=== PATIENT | female | born 1990 ===

== ENCOUNTER 2023-08-28 12:47 | Emergency (ER) | payer OTHER, SELFPAY ==
[2023-08-28] VITALS (12 sets, daily range): BP systolic 121–150; BP diastolic 82–102; PULSE 74–90; RESP 16–24; TEMP 36.6; O2SAT 95–100
--- NOTE | ~2023-08-28 | CT_ITS ---
EXAMINATION: CT cervical spine wo con DATE: 08/28/2023 16:01 INDICATION: Neck pain TECHNIQUE: Computed tomography (CT) of the cervical spine was performed without intravenous contrast. The dose-length product was 549 mGy-cm. Automated exposure control and iterative reconstruction tech [employer] were employed. COMPARISON: None FINDINGS: There is anatomic alignment of the cervical spine. Vertebral body heights are maintained. N o acute fracture or traumatic malalignment. Craniovertebral junction is normal. There is a 4 mm left upper lobe nodule. Craniovertebral junction is normal. No spinal stenosis. No significant paraspinal soft tissue abnormality. IMPRESSION: 1. No acute abnormality of the cervical spine. Reviewed, dictated and finalized at location B. YING AND CALKING SUPERVISOR
--- NOTE | ~2023-08-28 | CT_ITS ---
EXAMINATION: CTA brain carotid DATE: 08/28/2023 16:04 INDICATION: Syncope. TECHNIQUE: Computed tomographic angiography (CTA) of the head was performed without and with 100 mL O mnipaque-350 intravenous contrast. CTA of the neck was performed with intravenous contrast. Automated exposure control and iterative reconstruction technique were employed. The dose-length product was 1 687.73 mGy-cm. Maximum intensity projection and volume rendered 3D-reconstructions were created by kyrie mtz technologist on a separate workstation. COMPARISON: None. FINDINGS: HEAD CTA: There is no intracranial hemorrhage, acute infarction, or abnormal intracranial mass lesion . The ventricles are normal in size. There is mild mucosal thickening in the paranasal sinuses. The o rbits are normal. The mastoid air cells are normal. Right vertebral artery is dominant. There is no s ignificant stenosis of basilar artery or the posterior cerebral arteries. There is no significant laly nosis of the intracranial internal carotid arteries or anterior or middle cerebral arteries. Anterior communicating artery is normal. The posterior communicating arteries are normal. There is no aneurys m. NECK CTA: The visualized portions of the lung apices demonstrate a 4 mm nodule in left upper lobe, li nicholas benign. There are no pathologically enlarged lymph nodes. There is no visible plaque in the prox imal internal carotid arteries. There is 0% stenosis of the proximal right internal carotid artery re lative to normal distal artery lumen diameter (NASCET criteria). There is 0% stenosis of the proximal left internal carotid artery relative to normal distal artery lumen diameter. There is mild cervical spondylosis. IMPRESSION: 1. Normal brain. No aneurysm or significant intracranial arterial stenosis. 2. 0% stenosis of the proximal internal carotid arteries relative to normal distal artery lumen diame ters (NASCET criteria). Reviewed, dictated and finalized at location E. ET CONSULTANT IMPRESSION: 1. Normal brain. No aneurysm or significant intracranial arterial stenosis. 2. 0% stenosis of the proximal internal carotid arteries relative to normal dis joe artery lumen diameters (NASCET criteria).
--- NOTE | 2023-08-28 12:56 | ECG_ITS ---
Measurements Intervals [place] Rate: 79 P: 10 VT: 138 QRS: 20 QRSD: 101 T: 30 QT: 370 QTc: 426 Interpretive Statements SINUS RHYTHM LOW QRS VOLTAGE IN PRECORDIAL LEADS NO PREVIOUS ECG AVAILABLE FOR COMPARISON Electronically Signed On 08-29-2023 13:05:34 APPLICATION DEFENSE MANAGER by Yosef Rodriguez M.D.
[2023-08-28 13:29] LABS: Basophils Percent Auto 0.5 % (0.2-1.2); Eosinophils Percent Auto 0.4 % (0-4.4); Hematocrit 40.6 % (37.0-47.0); Hemoglobin 13.5 g/dL (12.0-15.0); Immature Granulocyte Absolute 0.03 K/mm3 (0.00-0.031); Immature Granulocyte Percent A 0.4 % (0-0.5); Lymphocytes Absolute Auto 2.55 K/mm3 (0.9-3.2); Lymphocytes Percent Auto 30.3 % (18.3-44.2); Mean Corpuscular HGB Conc 33.3 g/dl (32-36); Mean Corpuscular Hemoglobin 30.7 pg (26-34); Mean Corpuscular Volume 92.3 fl (80-100); Monocytes Absolute Auto 0.4 K/mm3 (0.1-0.6); Monocytes Percent Auto 4.6 % (2.6-8.5); Neutrophils Absolute Auto 5.4 K/mm3 (1.3-6.7); Neutrophils Percent Auto 63.8 % (45.5-73.1); Platelet Count Result 247 k/mm3 (150-375); Red Cell Distribution Width 12.2 % (11.5-14.5); White Blood Count 8.4 K/mm3 (4.5-10.0)
[2023-08-28 13:40] LABS: Alanine Aminotransferase 18 U/L (6-35); Albumin Level 4.5 g/dL (3.5-5.1); Alkaline Phosphatase 71 U/L (38-126); Anion Gap 7 mmol/L (8-16); Aspartate Amino Transferase 26 U/L (14-36); Bilirubin,Total 0.6 mg/dL (0.2-1.3); Blood Urea Nitrogen 11 mg/dL (7-17); Calcium 9.4 mg/dL (8.4-10.2); Carbon Dioxide 27 mmol/L (22-30); Chloride 104 mmol/L (98-107); Estimated CRCL calculation 138 ml/min; Estimated Glomerular Filt Rate > 60; Glucose 106 mg/dL (65-110); Potassium 3.8 mmol/L (3.4-5.0); Sodium 138 mmol/L (137-145)
--- NOTE | 2023-08-28 15:37 | ED.SYNCOPE ---
HPI - Syncope General Chief Complaint: Syncope Stated Complaint: syncopal episode Time Seen by Provider: 08/28/23 15:27 History of Present Illness HPI narrative: Patient is a 33-year-old female with history of recurrent headaches after a traumatic head injury in elementary school here with a syncopal episode. She states that she was experiencing a occipital headache, she tends to see her chiropractor for these as they usually extend down into her neck. She states that today she began experiencing this headache prior to presentation. She was at work and decided to crack her neck. She then felt immediately on well and as though she may pass out. She then lost consciousness and fell to the ground, unsure if she hit her head. Bystanders did notice some twitching of her body for 20-30 seconds. She then woke up in quickly returned to her baseline. No loss of bowel or bladder, no tongue biting. She does not have any prior history of seizure. She denies any prodromal chest pain or shortness of breath. She now feels back to baseline other than her continued occipital headache. Related Data Allergies Allergy/AdvReac Type Severity Reaction Status Date / Time No Known Allergies Allergy Verified 08/28/23 13:00 Review of Systems Review of Systems: All systems reviewed & are unremarkable except as noted in HPI and below PMFSH Family History Family History (Updated 11/08/18 @ 13:16 by DOCTOR UNKNOWN) Other Family history of arthritis Hypertension Social History Social History Smoking status: Never smoker Alcohol intake: current Exam Narrative: GENERAL: Well-appearing, well-nourished, and in no acute distress. HEAD: Normocephalic, atraumatic. EYES: PERRLA and EOMI. ENT: Nares clear. Mucous membranes moist. NECK: Supple. No carotid bruit appreciated bilaterally CHEST: Clear to auscultation. No respiratory distress. HEART: Regular rate and rhythm. Normal peripheral pulses. ABDOMEN: Soft, nontender, nondistended. EXTREMITIES: Normal range of motion. No edema. SKIN: Warm, dry, no rash. NEURO: No upper lower extremity drift, no facial droop, no sensory deficits in arms or legs. No focal neurological deficits appreciated. Alert and oriented x3. PSYCH: Normal mood and affect. Course Course Emergency Course: Chart review performed. Patient here after syncopal episode after cracking her neck. Triage vitals show mild HTN, otherwise normal. Lab work and imaging reviewed, CBC within normal limits, CMP within normal limits with normal renal function. Troponin negative. patient seen evaluated, normal neurological exam. Given patient's syncopal episode after manipulation of her neck will do CT head as well as CT angiogram. CT cervical spine was additionally ordered given patient fell to the ground. CT and CTA negative. Patient re-evaluated, feels well. Will discharge home with primary care follow-up. The results of pertinent diagnostic studies and exam findings were discussed. The patient?s provisional diagnosis and plan of care were discussed with the patient and present family. The patient and/or present family expressed understanding of the diagnosis and plan. The nurse was instructed to provide written instructions and appropriate follow-up information. The patient understands their need and responsibility to obtain additional follow-up as instructed. The risks of medications administered and prescribed were discussed with the patient and family present. Vital Signs Vital signs: Vital Signs Temperature 97.9 F 08/28/23 12:56 Pulse Rate 79 08/28/23 12:56 Respiratory Rate 16 08/28/23 12:56 Blood Pressure 142/98 H 08/28/23 12:56 Pulse Oximetry 100 08/28/23 12:56 Oxygen Delivery Room Air 08/28/23 12:56 Temperature 97.9 F 08/28/23 12:56 Pulse Rate 87 08/28/23 17:51 Respiratory Rate 20 08/28/23 17:51 Blood Pressure 124/93 H 08/28/23 17:51 Pulse Oximetry 100 08/28
[2023-08-28 16:05] LABS: Troponin I < 0.012 ng/mL (0.000-0.034)
== END 2023-08-28 17:55 | disposition home or self-care (01) ==
PROVIDERS: Emergency Provider Student in an Organized Health Care Education/Training Program; PCP Family Medicine
DX: R55 Syncope and collapse (principal); R51.9 Headache, unspecified; Z87.820 Personal history of traumatic brain injury
CPT/HCPCS: 36415; 70496; 70498; 72125; 80053; 81025; 84484; 85025; 93005; 99284; Q9967